=== PATIENT | female | born 1990 | race Caucasian/White ===

== ENCOUNTER 2020-03-22 20:33 | Emergency (ER) | payer BC, SELFPAY ==
[2020-03-22] MEDS ORDERED: HYDROcodone/Acetaminophen 10/325 mg Tablet ONE (22:17)
[2020-03-22] MEDS ORDERED: Cyclobenzaprine 10 MG TAB ONE (22:17)
--- NOTE | 2020-03-22 22:53 | RAD ---
XR Thoracic Spine 3 V STANDARD History: Injury. Fall Comparison: None. Findings: Thoracic spine is intact without acute fracture or malalignment. Posterior ribs are intact. Impression: No acute displaced fracture of the thoracic spine.
--- NOTE | 2020-03-22 22:55 | RAD ---
XR Lumbar Spine 2 Or 3 View History: Pain Comparison: None. Findings: There are 5 nonrib-bearing lumbar type vertebrae. No acute fracture or malalignment. No lis thesis. Incidental note is made of an intrauterine device. Impression: No acute osseous abnormality.
== END 2020-03-22 23:26 | disposition home or self-care (01) ==
LOC: ERS 20:33
DX: M54.9 Dorsalgia, unspecified (principal); G43.909 Migraine, unspecified, not intractable, without status migrainosus; F41.9 Anxiety disorder, unspecified; W17.89XA Other fall from one level to another, initial encounter
CPT/HCPCS: 72072; 72100

== ENCOUNTER 2024-01-30 22:36 | Emergency (ER) | payer BC | END 2024-01-31 04:40 | disposition home or self-care (01) | LOC: ERS 22:36 | DX: N83.202 Unspecified ovarian cyst, left side (principal) | CPT/HCPCS: 74177; 76856; 80053; 81001; 81025; 83690; 84484; 85025; 96374; 96375; J1885; J2270; J2405 ==